=== PATIENT | female | born 1965 | race Caucasian/White ===

== ENCOUNTER 2020-08-26 12:41 | Emergency (ER) | payer OTHER ==
[~2020-08-26] VITALS: Ht 172.7 cm; Wt 102.2 kg
[2020-08-26] MEDS ORDERED: CITALOPRAM10 M1 PO (13:26)
[2020-08-26] MEDS ORDERED: BUSPIRONE5 MG PO (13:26)
[2020-08-26] MEDS ORDERED: CHANTIX1 MG PO (13:27)
[2020-08-26] MEDS ORDERED: FLONASE AL50 MCG/ACT IN (13:28)
[2020-08-26 16:45] VITALS: BP 132/61
== END 2020-08-26 16:45 | DRG 563 ==
LOC: ED 12:41
DX: S52.501A Unspecified fracture of the lower end of right radius, initial encounter for closed fracture (principal); S52.611A Displaced fracture of right ulna styloid process, initial encounter for closed fracture; F41.9 Anxiety disorder, unspecified; F17.210 Nicotine dependence, cigarettes, uncomplicated; W18.30XA Fall on same level, unspecified, initial encounter; Y93.K9 Activity, other involving animal care; Y92.007 Garden or yard of unspecified non-institutional (private) residence as the place of occurrence of the external cause

== ENCOUNTER 2020-08-29 11:24 | Emergency (ER) | payer OTHER ==
[~2020-08-29] VITALS: Ht 172.7 cm; Wt 110.0 kg
[~2020-08-29 11:24] MED LIST: BUSPIRONE5 MG PO; CHANTIX1 MG PO; CITALOPRAM10 M1 PO; FLONASE AL50 MCG/ACT IN
[2020-08-29] MEDS ORDERED: IBUPROFEN600 MG PO (13:51)
[2020-08-29 14:10] VITALS: BP 159/74
[2020-08-29] MEDS ORDERED: FLONASE AL50 MCG/ACT IN (14:17)
== END 2020-08-29 14:10 | disposition home or self-care (01) | DRG 921 ==
LOC: ED 11:24
DX: L76.22 Postprocedural hemorrhage of skin and subcutaneous tissue following other procedure (principal); R20.0 Anesthesia of skin; S62.101D Fracture of unspecified carpal bone, right wrist, subsequent encounter for fracture with routine healing; X58.XXXD Exposure to other specified factors, subsequent encounter; F17.200 Nicotine dependence, unspecified, uncomplicated; Y83.8 Other surgical procedures as the cause of abnormal reaction of the patient, or of later complication, without mention of misadventure at the time of the procedure

== ENCOUNTER 2020-09-15 12:50 | Emergency (ER) | payer OTHER ==
[~2020-09-15] VITALS: Ht 172.7 cm; Wt 107.5 kg
[~2020-09-15 12:50] MED LIST changes: +IBUPROFEN600 MG PO
[2020-09-15] MEDS ORDERED: KEFLEX500 M1 PO (13:43)
[2020-09-15 14:12] VITALS: BP 122/60
== END 2020-09-15 14:12 | disposition home or self-care (01) | DRG 863 ==
LOC: ED 12:50
DX: T81.41XA Infection following a procedure, superficial incisional surgical site, initial encounter (principal); L08.9 Local infection of the skin and subcutaneous tissue, unspecified; F17.210 Nicotine dependence, cigarettes, uncomplicated; Y83.8 Other surgical procedures as the cause of abnormal reaction of the patient, or of later complication, without mention of misadventure at the time of the procedure

== ENCOUNTER 2022-05-24 11:21 | Emergency (ER) | payer OTHER ==
[~2022-05-24] VITALS: Ht 172.7 cm; Wt 100.0 kg
[2022-05-24] VITALS (11 sets, daily range): BP systolic 104–126; BP diastolic 57–73
[~2022-05-24 11:21] MED LIST changes: +KEFLEX500 M1 PO; +LYRICA150 MG PO; +TRAMADOL HCL50 MG PO
[2022-05-24 12:23] LABS: URINE BILIRUBIN - DIPSTICK NEGATIVE (NEGATIVE); URINE BLOOD DIPSTICK NEGATIVE (NEGATIVE); URINE COLOR YELLOW; URINE GLUCOSE - DIPSTICK NEGATIVE (NEGATIVE); URINE KETONE NEGATIVE (NEGATIVE); URINE LEUK ESTERASE NEGATIVE (NEGATIVE); URINE PH 5.5 (4.5-8.0); URINE PROTEIN - DIPSTICK NEGATIVE (NEG-TRACE); URINE SPECIFIC GRAVITY 1.025; URINE UROBILINOGEN - DIPSTICK 0.2 E.U./dL (0.2)
[2022-05-24 12:24] LABS: HEMATOCRIT 43.4 % (37.0-47.0); HEMOGLOBIN 14.1 g/dl (12.0-16.0); IMMATURE GRANULOCYTES 0.1 % (0.0-5.0); MEAN CELL VOLUME 99.5 fL CALC (80.0-100.0); MEAN CORPUSCULAR HGB 32.3 pG CALC (26.0-32.0); MEAN CORPUSCULAR HGB CONC 32.5 g/dL CAL (32.0-36.0); NEUT# 5.48 thou/uL (2.00-7.15); RED BLOOD COUNT 4.36 mill/uL (4.20-5.60); RED CELL DISTRI WIDTH 13.1 % (11.5-15.5)
[2022-05-24 12:28] LABS: URINE NITRITE - DIPSTICK NEGATIVE (Negative)
[2022-05-24 12:35] LABS: ALBUMIN 4.1 g/dL (3.2-5.0); ALKALINE PHOSPHATASE 82 u/l (38-126); ANION GAP 8 (6-22 (CALC)); BILIRUBIN, TOTAL 0.3 mg/dL (0.0-1.4); BUN 16 mg/dL (7-17); BUN/CREATININE RATIO 18 (12-20 (CALC)); CARBON DIOXIDE 28 mmol/l (22-30); CHLORIDE 107 mmol/l (95-108); CREATININE 0.9 mg/dL (0.5-1.0); GFR FOR AFR.AMER. > 60 ML/MIN (>=60 (CALC)); GFR OTHER RACES > 60 ML/MIN (>=60 (CALC)); LIPASE 101 u/l (23-300); POTASSIUM 3.7 mmol/l (3.5-5.1); SGOT/AST 24 u/l (14-36); SODIUM 140 mmol/l (137-146); TOTAL PROTEIN 6.9 g/dL (6.3-8.2)
== END 2022-05-24 14:12 | disposition home or self-care (01) | DRG 392 ==
LOC: ED 11:21
PROVIDERS: Internal Medicine
DX: R10.31 Right lower quadrant pain (principal); F41.9 Anxiety disorder, unspecified; F17.210 Nicotine dependence, cigarettes, uncomplicated

== ENCOUNTER 2022-07-16 11:15 | Emergency (ER) | payer OTHER ==
[~2022-07-16] VITALS: Ht 172.7 cm; Wt 100.0 kg
[2022-07-16] MEDS ORDERED: ONDANSETRON4 MG PO (13:57)
[2022-07-16] MEDS ORDERED: DIPHENHYDRAM50 M2 PO (13:57)
[2022-07-16] MEDS ORDERED: NAPROXEN500 MG PO (13:57)
== END 2022-07-16 14:04 | disposition home or self-care (01) | DRG 607 ==
LOC: ED 11:15
DX: S00.86XA Insect bite (nonvenomous) of other part of head, initial encounter (principal); F41.9 Anxiety disorder, unspecified; F17.210 Nicotine dependence, cigarettes, uncomplicated; W57.XXXA Bitten or stung by nonvenomous insect and other nonvenomous arthropods, initial encounter